=== PATIENT | male | born 1970 | race Caucasian/White ===

== ENCOUNTER → 2024-11-21 | Outpatient (CLI) | payer OTHER ==
--- NOTE | 2024-11-21 14:36 | XR ---
EXAMINATION TYPE: XR hand complete RT DATE OF EXAM: 11/21/2024 CLINICAL INDICATION: Male, 54 years old with history of M25.531 Pain right wrist, pain TECHNIQUE: Frontal, lateral and oblique images of the right hand are obtained. COMPARISON: None. FINDINGS: There is no acute fracture/dislocation evident in the right hand. [id number] degener ative changes at the base of first metacarpal. The overlying soft tissue appears unremarkable. IMPRESSION: As above. [facility], , 11/21/2024 2:33 PM
== END | disposition home or self-care (01) ==
LOC: RADXRMAIN 14:05
PROVIDERS: ATTEND Internal Medicine Geriatric Medicine
DX: M18.12 Unilateral primary osteoarthritis of first carpometacarpal joint, left hand (principal)